=== PATIENT | female | born 1955 | race African-American/Black ===

== ENCOUNTER 2020-05-11 20:04 | Inpatient (IN) | payer MEDICARE ==
[~2020-05-11] VITALS: Ht 152.4 cm; Wt 59.0 kg
[2020-05-11 20:00] VITALS: BP 132/97
[2020-05-11 20:30] VITALS: BP 132/97
[2020-05-11] MEDS ORDERED: DIPH25CA83 PO (22:10)
[2020-05-11] MEDS ORDERED: LISI30TA36 PO (22:10)
[2020-05-11] MEDS ORDERED: TEMA15CA5 PO (22:10)
[2020-05-11] MEDS ORDERED: ABIL10 PO (22:10)
[2020-05-11] MEDS ORDERED: ASPI-1497 PO (22:10)
[2020-05-12 00:15] VITALS: BP 137/94
[2020-05-12 04:45] VITALS: BP 146/99
[2020-05-12 06:33] LABS: HEMATOCRIT 33.6 % (36.0-48.0); HEMOGLOBIN 11.2 g/dL (12.0-16.0); MEAN CORPUSCULAR HEMOGLOBIN 30.7 pg (28.0-32.0); MEAN CORPUSCULAR VOLUME 91.8 fL (81.0-99.0); PLATELET 258 x1000/uL (130-400); RED BLOOD CELL COUNT 3.65 mill/uL (4.2-5.4); RED CELL DISTRIBUTION WIDTH 14.2 % (11.6-14.6)
[2020-05-12 06:34] LABS: PROTHROMBIN TIME 10.8 sec (9.6-11.0)
[2020-05-12 06:47] LABS: CHLORIDE 105 mEq/L (98-107)
[2020-05-12 08:00] VITALS: BP 143/97
[2020-05-12] MEDS: ASPIRIN 81MG EC TABLET PO SCH (08:13)
[2020-05-12] MEDS: ARIPIPRAZOLE 5MG TABLET PO SCH ×2 (08:13→17:51)
[2020-05-12] MEDS: LISINOPRIL 10MG TABLET PO SCH (08:14)
[2020-05-12] MEDS ORDERED: LISINOPRIL 30 MG PO SCH (09:00)
[2020-05-12] MEDS ORDERED: ENOXAPARIN 40MG/0.4ML SYR SUBCUT SCH (09:00)
[2020-05-12] MEDS ORDERED: ARIPIPRAZOLE 10 MG PO SCH (09:00)
[2020-05-12] MEDS ORDERED: ENOXAPARIN 60MG/0.6ML SYR SUBCUT SCH (11:00)
[2020-05-12 12:00] VITALS: BP 148/87
[2020-05-12 16:00] VITALS: BP 156/99
[2020-05-12] MEDS ORDERED: KETOROLAC 15MG/ML VIAL IV PRN (17:45)
[2020-05-12] MEDS: ENOXAPARIN 60MG/0.6ML SYR SUBCUT SCH (17:51)
[2020-05-12 20:34] VITALS: BP 146/92
[2020-05-12] MEDS: TEMAZEPAM 15MG CAPSULE PO SCH (21:22)
[2020-05-13] VITALS (7 sets, daily range): BP systolic 134–145; BP diastolic 85–95
[2020-05-13] MEDS: ENOXAPARIN 60MG/0.6ML SYR SUBCUT SCH ×2 (06:20→19:27)
[2020-05-13] MEDS: ARIPIPRAZOLE 5MG TABLET PO SCH ×2 (08:39→19:27)
[2020-05-13] MEDS: LISINOPRIL 10MG TABLET PO SCH (08:40)
[2020-05-13] MEDS: ASPIRIN 81MG EC TABLET PO SCH (08:40)
[2020-05-13] MEDS: IPRATROPIUM/ALBUTEROL 0.5-3(2.5)MG/3ML NEB HHN PRN (14:23)
[2020-05-13] MEDS: TEMAZEPAM 15MG CAPSULE PO SCH (21:33)
[2020-05-14] VITALS (7 sets, daily range): BP systolic 118–179; BP diastolic 77–95
[2020-05-14] MEDS: ENOXAPARIN 60MG/0.6ML SYR SUBCUT SCH ×2 (06:25→17:23)
[2020-05-14] MEDS: ARIPIPRAZOLE 5MG TABLET PO SCH ×2 (08:06→17:23)
[2020-05-14] MEDS: LISINOPRIL 10MG TABLET PO SCH (08:06)
[2020-05-14] MEDS: ASPIRIN 81MG EC TABLET PO SCH (08:06)
[2020-05-14] MEDS ORDERED: CLONIDINE 0.1MG TABLET PO PRN (08:30)
[2020-05-14] MEDS: IPRATROPIUM/ALBUTEROL 0.5-3(2.5)MG/3ML NEB HHN PRN (10:30)
[2020-05-15] MEDS ORDERED: LISINOPRIL 40MG TABLET PO SCH (09:00)
== END 2020-05-14 21:00 | DRG 299 ==
LOC: 6WST 20:04
PROVIDERS: ADMIT Hospitalist; ATTEND Hospitalist
DX: I71.4 Abdominal aortic aneurysm, without rupture (principal); I26.99 Other pulmonary embolism without acute cor pulmonale; D68.59 Other primary thrombophilia; F20.9 Schizophrenia, unspecified; I10 Essential (primary) hypertension; I25.10 Atherosclerotic heart disease of native coronary artery without angina pectoris; F17.200 Nicotine dependence, unspecified, uncomplicated; I71.2 Thoracic aortic aneurysm, without rupture; Z20.828 Contact with and (suspected) exposure to other viral communicable diseases; R59.0 Localized enlarged lymph nodes; Z90.11 Acquired absence of right breast and nipple; Z85.3 Personal history of malignant neoplasm of breast; Z92.21 Personal history of antineoplastic chemotherapy; Z79.899 Other long term (current) drug therapy; D49.1 Neoplasm of unspecified behavior of respiratory system
CPT/HCPCS: 36415; 71250; 80048; 85027; 87426; 97116; 97162; 97166; J1650